=== PATIENT | female | born 1955 | race African-American/Black ===

== ENCOUNTER 2017-07-30 07:29 | Emergency (ER) | payer OTHER ==
[~2017-07-30] VITALS: Ht 162.6 cm; Wt 78.0 kg
[2017-07-30] MEDS ORDERED: SODIUM CHLORIDE 0.9% 1,000 ML IV ONE (09:30)
[2017-07-30] MEDS ORDERED: BACLOFEN 10MG TABLET PO ONE (09:30)
[2017-07-30 09:52] LABS: BASOPHILS % 1.1 % (0.0-2.0); EOSINOPHILS % 4.7 % (0.0-5.0); HEMATOCRIT. 34.1 % (36.0-48.0); LYMPHOCYTES % 24.6 % (20.0-50.0); MEAN CORPUSCULAR HEMOGLOBIN 23.9 pg (28.0-32.0); MEAN CORPUSCULAR VOLUME 73.8 fL (81.0-99.0); MEAN PLATELET VOLUME 8.6 fl (7.4-10.4); MONOCYTES % 6.5 % (2.0-8.0); NEUTROPHILS % 63.1 % (40.0-76.0); PLATELET 312 x1000/uL (130-400); RED BLOOD CELL COUNT 4.62 mill/uL (4.2-5.4); RED CELL DISTRIBUTION WIDTH 16.4 % (11.6-14.6)
[2017-07-30 10:00] LABS: PARTIAL THROMBOPLASTIN TIME 29.7 sec (23.4-31.0); PROTHROMBIN TIME 10.7 sec (9.4-11.6)
[2017-07-30 10:03] LABS: CHLORIDE 109 mEq/L (98-107)
[2017-07-30 10:09] LABS: CREATINE KINASE 307 IU/L (26-192); CREATINE KINASE MB FRACTION 3.4 ng/mL (0.5-3.6)
[2017-07-30 11:25] LABS: CLARITY URINE CLEAR (CLEAR); COLOR URINE YELLOW (YELLOW); KETONES URINE NEGATIVE (NEGATIVE); LEUKOCYTE ESTERASE URINE 1+ (NEGATIVE); NITRITE URINE POSITIVE (NEGATIVE); OCCULT BLOOD URINE NEGATIVE (NEGATIVE); PH URINE 6.5 (4.5-8.0); PROTEIN URINE NEGATIVE (NEGATIVE); SPECIFIC GRAVITY URINE 1.013 (1.005-1.030); UROBILINOGEN URINE 0.2 E.U./dL (0.2-1.0)
[2017-07-30] MEDS ORDERED: DIAZEPAM 5 MG TABLET PO ONE (11:30)
[2017-07-30 13:33] VITALS: BP 128/79
== END 2017-07-30 13:38 | disposition home or self-care (01) ==
LOC: ER 08:09
DX: K64.4 Residual hemorrhoidal skin tags (principal); M79.1 Myalgia; D64.9 Anemia, unspecified; I10 Essential (primary) hypertension; E46 Unspecified protein-calorie malnutrition; Z68.29 Body mass index [BMI] 29.0-29.9, adult; Z99.3 Dependence on wheelchair; Z89.511 Acquired absence of right leg below knee; Z87.828 Personal history of other (healed) physical injury and trauma
CPT/HCPCS: 36415; 80053; 81003; 82550; 82553; 83690; 83735; 85025; 85610; 85730; 86850; 86900; 86901; 87077; 87086; 87186; 93005; 96360; 96361; 99285; J7030

== ENCOUNTER 2018-02-26 15:31 | Emergency (ER) | payer OTHER ==
[~2018-02-26] VITALS: Ht 162.6 cm; Wt 78.0 kg
[~2018-02-26 15:31] MED LIST: BENA40TA9 PO; LABE200T28 PO
[2018-02-26 19:06] LABS: CLARITY URINE CLOUDY (CLEAR); COLOR URINE DARK YELLOW (YELLOW); KETONES URINE NEGATIVE (NEGATIVE); LEUKOCYTE ESTERASE URINE 1+ (NEGATIVE); NITRITE URINE POSITIVE (NEGATIVE); OCCULT BLOOD URINE 1+ (NEGATIVE); PH URINE 5.5 (4.5-8.0); PROTEIN URINE TRACE (NEGATIVE); SPECIFIC GRAVITY URINE 1.015 (1.005-1.030); UROBILINOGEN URINE 0.2 E.U./dL (0.2-1.0)
[2018-02-26 19:50] VITALS: BP 127/79
== END 2018-02-26 19:54 | disposition home or self-care (01) ==
LOC: ER 17:36
DX: N39.0 Urinary tract infection, site not specified (principal); R33.9 Retention of urine, unspecified; I10 Essential (primary) hypertension; Z89.611 Acquired absence of right leg above knee; Z96.651 Presence of right artificial knee joint; Z79.899 Other long term (current) drug therapy
CPT/HCPCS: 51702; 87077; 87186; 99284

== ENCOUNTER 2018-04-05 18:28 | Emergency (ER) | payer OTHER ==
[~2018-04-05] VITALS: Ht 162.6 cm; Wt 87.0 kg
[2018-04-05] MEDS ORDERED: AMLO10TA80 PO (19:08)
[2018-04-05] MEDS ORDERED: LOSA50TA3 PO (19:31)
[2018-04-05] MEDS ORDERED: IBUPROFEN 400MG TABLET PO ONE (22:45)
[2018-04-06 01:20] VITALS: BP 170/90
[2018-04-06 08:32] LABS: CLARITY URINE CLOUDY (CLEAR); LEUKOCYTE ESTERASE URINE 2+ (NEGATIVE); OCCULT BLOOD URINE TRACE (NEGATIVE); PROTEIN URINE 1+ (NEGATIVE)
[2018-04-06 08:33] LABS: COLOR URINE YELLOW (YELLOW); KETONES URINE NEGATIVE (NEGATIVE); NITRITE URINE NEGATIVE (NEGATIVE); PH URINE 6.5 (4.5-8.0); SPECIFIC GRAVITY URINE 1.011 (1.005-1.030); UROBILINOGEN URINE 0.2 E.U./dL (0.2-1.0)
== END 2018-04-06 01:30 | disposition left against medical advice (07) ==
LOC: ER 18:28
DX: T83.098A Other mechanical complication of other urinary catheter, initial encounter (principal); I10 Essential (primary) hypertension; N39.0 Urinary tract infection, site not specified; F17.200 Nicotine dependence, unspecified, uncomplicated; Z89.511 Acquired absence of right leg below knee; Z96.651 Presence of right artificial knee joint; Z98.890 Other specified postprocedural states; Z79.899 Other long term (current) drug therapy
CPT/HCPCS: 87077; 87186; 99284

== ENCOUNTER 2018-07-22 07:24 | Emergency (ER) | payer OTHER ==
[~2018-07-22] VITALS: Ht 162.6 cm; Wt 87.0 kg
[~2018-07-22 07:24] MED LIST changes: +AMLO10TA80 PO; -BENA40TA9 PO; -LABE200T28 PO; +LOSA50TA3 PO
[2018-07-22 14:41] VITALS: BP 188/111
== END 2018-07-22 17:55 | disposition left against medical advice (07) ==
LOC: ER 07:51
DX: K59.00 Constipation, unspecified (principal); Z53.21 Procedure and treatment not carried out due to patient leaving prior to being seen by health care provider

== ENCOUNTER 2019-06-22 18:13 | Emergency (ER) | payer OTHER ==
[~2019-06-22] VITALS: Ht 162.6 cm; Wt 81.0 kg
[2019-06-22] MEDS ORDERED: ONDANSETRON HCL 4MG/2ML INJ IV STA (22:05)
[2019-06-22] MEDS ORDERED: KETOROLAC 30MG/ML VIAL IV STA (22:05)
[2019-06-22] MEDS ORDERED: SODIUM CHLORIDE 0.9% 1,000 ML IV ONE (22:05)
[2019-06-22 22:48] LABS: EOSINOPHILS % 5.4 % (0.0-5.0); HEMATOCRIT. 36.2 % (36.0-48.0); HEMOGLOBIN. 12.1 g/dL (12.0-16.0); LYMPHOCYTES % 31.1 % (20.0-50.0); MEAN CORPUSCULAR HEMOGLOBIN 25.1 pg (28.0-32.0); MEAN CORPUSCULAR VOLUME 75.1 fL (81.0-99.0); MEAN PLATELET VOLUME 8.5 fl (7.4-10.4); MONOCYTES % 7.3 % (2.0-8.0); NEUTROPHILS % 55.2 % (40.0-76.0); PLATELET 324 x1000/uL (130-400); RED BLOOD CELL COUNT 4.82 mill/uL (4.2-5.4); RED CELL DISTRIBUTION WIDTH 16.2 % (11.6-14.6)
[2019-06-22 22:56] LABS: CHLORIDE 111 mEq/L (98-107)
[2019-06-23 02:40] VITALS: BP 130/87
== END 2019-06-23 02:41 | disposition home or self-care (01) ==
LOC: ER 18:13
DX: R10.9 Unspecified abdominal pain (principal); K43.9 Ventral hernia without obstruction or gangrene; E11.9 Type 2 diabetes mellitus without complications; I10 Essential (primary) hypertension
CPT/HCPCS: 36415; 74176; 80053; 83690; 84484; 85025; 93005; 96374; 96375; 99284; J1885; J2405; J7030

== ENCOUNTER 2020-08-05 21:38 | Emergency (ER) | payer OTHER ==
[~2020-08-05] VITALS: Ht 162.6 cm; Wt 68.0 kg
[2020-08-05] MEDS ORDERED: SODIUM CHLORIDE 0.9% 1000ML BAG (SEPSIS BOLUS) IV ONE (22:15)
[2020-08-05 22:47] LABS: BASOPHILS % 0.4 % (0.0-2.0); EOSINOPHILS % 0.1 % (0.0-5.0); HEMATOCRIT. 34.7 % (36.0-48.0); HEMOGLOBIN. 11.3 g/dL (12.0-16.0); LYMPHOCYTES % 9.1 % (20.0-50.0); MEAN CORPUSCULAR HEMOGLOBIN 23.9 pg (28.0-32.0); MEAN CORPUSCULAR VOLUME 73.5 fL (81.0-99.0); MEAN PLATELET VOLUME 9.7 fl (7.4-10.4); MONOCYTES % 12.5 % (2.0-8.0); NEUTROPHILS % 77.9 % (40.0-76.0); PLATELET 393 x1000/uL (130-400); RED BLOOD CELL COUNT 4.72 mill/uL (4.2-5.4); RED CELL DISTRIBUTION WIDTH 16.9 % (11.6-14.6)
[2020-08-05 22:50] LABS: CHLORIDE 97 mEq/L (98-107)
[2020-08-05 22:53] LABS: INR 1.3
[2020-08-05] MEDS ORDERED: PIPERACILLIN/TAZ 3.375G PREMIX 50 ML IV NR (23:10)
[2020-08-05] MEDS ORDERED: VANCOMYCIN 1 G PREMIX 200 ML IV SCH (23:15)
[2020-08-05] MEDS ORDERED: PIPERACILLIN/TAZOBACTAM 3.375GM/50ML PREMIX IV ONE (23:15)
[2020-08-05] MEDS ORDERED: HALOPERIDOL LACTATE 5MG/ML VIAL IM ONE (23:45)
[2020-08-05] MEDS ORDERED: ACETAMINOPHEN 500MG TABLET PO ONE (23:45)
[2020-08-06] MEDS ORDERED: MORPHINE SULFATE 4 MG/ML CPJ (NOT FOR IM USE) IV ONE
[2020-08-06 00:08] LABS: CLARITY URINE TURBID (CLEAR); COLOR URINE YELLOW (YELLOW); KETONES URINE TRACE (NEGATIVE); LEUKOCYTE ESTERASE URINE 3+ (NEGATIVE); NITRITE URINE NEGATIVE (NEGATIVE); OCCULT BLOOD URINE 3+ (NEGATIVE); PROTEIN URINE 3+ (NEGATIVE); SPECIFIC GRAVITY URINE 1.016 (1.005-1.030); UROBILINOGEN URINE 0.2 E.U./dL (0.2-1.0)
[2020-08-06 02:16] VITALS: BP 132/79
== END 2020-08-06 02:22 | disposition short-term general hospital (02) ==
LOC: ER 21:38 → CANBEDREQ 08-06 04:18
DX: A41.9 Sepsis, unspecified organism (principal); R65.20 Severe sepsis without septic shock; N17.9 Acute kidney failure, unspecified; E87.2 Acidosis; N39.0 Urinary tract infection, site not specified; R31.0 Gross hematuria; K80.80 Other cholelithiasis without obstruction; N13.30 Unspecified hydronephrosis; N20.0 Calculus of kidney
CPT/HCPCS: 36415; 71045; 74176; 80053; 81003; 83605; 84145; 84484; 85025; 85610; 87040; 87086; 87106; 93005; 96361; 96365; 96366; 96367; 96375; 99291; J2270; J2543; J3370; J7030; J1630

== ENCOUNTER 2021-08-30 10:18 | Emergency (ER) | payer MEDICAID, OTHER ==
[~2021-08-30] VITALS: Ht 165.1 cm; Wt 82.0 kg
[2021-08-30 10:23] VITALS: BP 169/67
[2021-08-30] MEDS ORDERED: ACETAMINOPHEN 325MG TABLET PO ONE (10:45)
[2021-08-30] MEDS ORDERED: TRAMADOL 50MG TABLET PO ONE (11:45)
[2021-08-30] MEDS ORDERED: ACET-2708 MT (12:52)
== END 2021-08-30 13:10 | disposition home or self-care (01) ==
LOC: ER 10:18
DX: S90.32XA Contusion of left foot, initial encounter (principal); X58.XXXA Exposure to other specified factors, initial encounter; I10 Essential (primary) hypertension; E11.9 Type 2 diabetes mellitus without complications; Y93.89 Activity, other specified; Y92.89 Other specified places as the place of occurrence of the external cause
CPT/HCPCS: 73630; 99283

== ENCOUNTER 2022-06-28 15:27 | Emergency (ER) | payer MEDICARE, OTHER ==
[~2022-06-28] VITALS: Ht 170.2 cm; Wt 70.0 kg
[~2022-06-28 15:27] MED LIST changes: +ACET-2708 MT; +NITR-87 MT
[2022-06-28] MEDS ORDERED: ONDANSETRON 4MG ODT PO ONE (15:45)
[2022-06-28] MEDS ORDERED: MORPHINE SULFATE 10 MG/ML CPJ IV ONE (15:45)
[2022-06-28] MEDS ORDERED: KETOROLAC 60MG/2ML VIAL IM ONE (15:45)
[2022-06-28] MEDS ORDERED: MORPHINE SULFATE 10 MG/ML CPJ IM ONE (16:30)
[2022-06-28 16:49] LABS: CLARITY URINE TURBID (CLEAR); COLOR URINE YELLOW (YELLOW); KETONES URINE NEGATIVE (NEGATIVE); LEUKOCYTE ESTERASE URINE 3+ (NEGATIVE); NITRITE URINE POSITIVE (NEGATIVE); OCCULT BLOOD URINE 2+ (NEGATIVE); PH URINE 6.5 (4.5-8.0); PROTEIN URINE 2+ (NEGATIVE); SPECIFIC GRAVITY URINE 1.008 (1.005-1.030)
[2022-06-28] MEDS ORDERED: LIDOCAINE HCL 1% 20ML VIAL (Pyxis) INJ INFIL ONE (17:15)
[2022-06-28] MEDS ORDERED: CEFTRIAXONE SODIUM 1 G/VIAL IM ONE (17:15)
[2022-06-28] MEDS ORDERED: HYDROCODONE/ACETAMINOPHEN 5/325MG TABLET PO ONE (17:15)
[2022-06-28] MEDS ORDERED: IBUP-2028 MT (17:18)
[2022-06-28] MEDS ORDERED: CEPH500C2 MT (17:18)
[2022-06-28] MEDS ORDERED: HYDR-4001 MT (17:18)
[2022-06-28 17:37] VITALS: BP 135/88
== END 2022-06-28 17:38 | disposition home or self-care (01) ==
LOC: ER 15:27
DX: N39.0 Urinary tract infection, site not specified (principal); I10 Essential (primary) hypertension; E11.9 Type 2 diabetes mellitus without complications; Z98.890 Other specified postprocedural states
CPT/HCPCS: 81003; 87086; 87186; 96372; 96374; 99284; J0696; J1885; J2270; J3490; Q0162